=== PATIENT | female | born 1945 | race Caucasian/White ===

== ENCOUNTER 2020-08-06 17:28 | Emergency (ER) | payer MEDICARE, OTHER, SELFPAY ==
[2020-08-06 17:46] VITALS: BP 165/95; PULSE 69; RESP 18; TEMP 36.9; O2SAT 99
[2020-08-06 17:59] VITALS: BP 165/95; PULSE 69; RESP 18; TEMP 36.9; O2SAT 99
--- NOTE | 2020-08-06 18:27 | ED.BACK ---
HPI - Back Pain/Injury General Chief Complaint: Back Pain/Injury Stated Complaint: Back Pain History of Present Illness HPI Narrative: This is a 75-year-old white female that presented today with lower back pain. Patient notes that she has a history of sciatic nerve pain and noted that yesterday she started having pain in her lower back bilateral. She did take anti-inflammatories with no relief. Patient notes that her pain increases when she sits, flexion and rotation she notes that she has pain while standing for long periods of time . Patient has full range of motion is her lower extremities, she is able to raise both legs and strength is equal bilateral. Patient pain does not radiate to her lower extremity she has not experienced any numbness or tingling as she describes it as a burning pain. The patient denies SOB, CP, palpitation, extremity numbness, lightheadedness, dizziness, constipation, diarrhea, chills, or fever. Related Data Home Medications Medication Instructions Recorded Confirmed lisinopril 20 mg PO DAILY 08/06/20 08/06/20 metformin 500 mg PO BID 08/06/20 08/06/20 Allergies Allergy/AdvReac Type Severity Reaction Status Date / Time Penicillins Allergy Swelling Verified 08/06/20 17:59 of Lip/Tongue/Throat Sulfa (Sulfonamide Allergy Rash Verified 08/06/20 17:59 Antibiotics) Review of Systems Review of Systems: All systems reviewed & are unremarkable except as noted in HPI and below (10 system review) Exam Narrative: Exam Narrative: GENERAL: This is a well-nourished, well-developed patient, in no apparent distress. HEAD: normocephalic, atraumatic. EYES: PERRL. Sclera clear/white. Vision is grossly intact. EARS: External ears normal, auditory canals clear and without drainage, TMs normal without perforation. Hearing grossly intact. NOSE: External nose normal with no obvious nasal discharge, nares without redness, no rhinorrhea. THROAT: Mucous membranes moist, posterior pharynx clear. NECK: Neck supple, non-tender without lymphadenopathy, masses or thyromegaly. CARDIOVASCULAR: Regular rate and rhythm without murmurs, gallops, or rubs. RESPIRATORY: Clear to auscultation. Breath sounds equal bilaterally. No wheezes, rales, or rhonchi. GASTROINTESTINAL: Abdomen soft, non-tender, nondistended. Bowel sounds are active. No hepato-splenomegaly, or palpable masses. No guarding. SKIN: warm, intact with no suspicious lesions or rash, good texture and turgor. NEURO: awake, alert, and oriented to person, place and time. There were no obvious focal neurologic abnormalities. Steady gait EXTREMITIES: Normal range of motion. No edema. No calf tenderness. Negative Homans sign bilaterally. BACK: Tenderness to lower back bilateral. Course Course Emergency Course: Patient discharged with prednisone and Flexeril [place] instructed to follow-up with her primary care physician Vital Signs Vital signs: Vital Signs Temperature 98.5 F 08/06/20 17:46 Pulse Rate 69 08/06/20 17:46 Respiratory Rate 18 08/06/20 17:46 Blood Pressure 165/95 H 08/06/20 17:46 Pulse Oximetry 99 08/06/20 17:46 Temperature 98.5 F 08/06/20 17:59 Pulse Rate 69 08/06/20 17:59 Respiratory Rate 18 08/06/20 17:59 Blood Pressure 165/95 H 08/06/20 17:59 Pulse Oximetry 99 08/06/20 17:59 Discharge Plan Discharge Clinical Impression: Sciatica Qualifiers: Laterality: bilateral Qualified Code(s): M54.31 - Sciatica, right side Patient Disposition: Home, Self-Care Condition: Stable Instructions: Antibiotic Form Additional Instructions: We cannot avoid the normal wear and tear on our spines that goes along with aging. But there are things you can do to lessen the impact of low back problems. Having a healthy lifestyle is a good start. Exercise:Combine aerobic exercise, like walking or swimming, with specific exercises to keep the muscles in your back and abdomen strong and flexible. Proper Lifting:Be sure
== END 2020-08-06 18:14 | disposition home or self-care (01) ==
PROVIDERS: Emergency Provider Nurse Practitioner; PCP Family Medicine Sports Medicine
DX: M54.31 Sciatica, right side (principal)
CPT/HCPCS: 99203; G0463

== ENCOUNTER 2020-09-29 01:18 | Day surgery (SDC) | payer MEDICARE, OTHER, SELFPAY ==
[2020-09-11 16:18] VITALS: BMI 34.2
--- NOTE | 2020-09-11 16:38 | PC.NURSE ---
Pt. states she tested positive for Covid on 08/30/2020. Pt. symptoms included diarrhea, back pain, runny nose, loss of taste/smell, and fatigue. Instructed pt to take picture of Covid test result and email to our Instructor [employer] Tuyet Wyman. Also instructed pt to bring copy of positive test result on day of procedure. Shruthi Esparza RN.
--- NOTE | 2020-09-29 07:48 | WPDANESEPPF ---
Anes - Initial Pre Proc Eval Procedure: Operation Date: 09/29/20 09:15 Proposed Procedures p Screening Colonoscopy - Pierce Epps MD Date/Time: 09/29/20 07:48 Surgeon: Pierce Epps MD Pre Op Diagnosis: Neoplasm Screening,fam hx colon CA, pers hx polyps Patient Data Age: 75 Gender: F Height: 1.57 m Weight: 85 kg Allergies Allergy/AdvReac Type Severity Reaction Status Date / Time bee venom protein (honey bee) Allergy Severe Swelling Verified 09/29/20 07:53 [bees] Penicillins Allergy Swelling Verified 09/29/20 07:53 of Lip/Tongue/Throat Sulfa (Sulfonamide Allergy Rash Verified 09/29/20 07:53 Antibiotics) Home Medications Medication Instructions Recorded Confirmed Type lisinopril 20 mg PO DAILY 08/06/20 09/11/20 History metformin 500 mg PO BID 08/06/20 09/11/20 History sodium,potassium,mag sulfates See Rx Instructions .ROUTE 09/10/20 Rx [Suprep Bowel Prep Kit] .COMPLEX #1 ml amlodipine 5 mg PO DAILY 09/11/20 09/11/20 History aspirin 81 mg PO DAILY 09/11/20 09/11/20 History cetirizine [Zyrtec] 10 mg PO DAILY 09/11/20 09/11/20 History cholecalciferol (vitamin D3) 250 mcg PO DAILY 09/11/20 09/11/20 History diphenhydramine HCl [Benadryl] 25 mg PO HS 09/11/20 09/11/20 History spironolactone 50 mg PO DAILY 09/11/20 09/11/20 History Patient hx anesthesia problems: none Family hx anesthesia problems: none [facility] Past Medical History Medical History (Updated 09/29/20 @ 08:02 by Connor Navarro MD) Anxiety CAD (coronary artery disease) Depression Diabetes HTN (hypertension) Hx of myocardial infarction Obesity Osteoarthritis Social History Social History Smoking status: Never smoker Living arrangements: alone Spiritual care concerns: No Anes - Eval Final PreProcedure Day of Procedure 09/29/20 07:48 Patient weight: obese Heart: regular rate and rhythm Lungs: clear to auscultation and normal air movement Airway: Mallampati scale class II Neurological: alert and oriented Last oral intake: >/= 8 hours ASA classification: III Emergent: no Anesthetic plan: proceed Anesthesia type and monitoring: general GIVS Informed Consent: The patient's anesthetic plan and its attendant risks and benefits were discussed with the patient/family/POA. Questions were solicited and answers provided to the satisfaction of the patient/family/POA.
[2020-09-29 07:55] VITALS: BP 164/62; PULSE 68; RESP 18; TEMP 36.1; O2SAT 100
[2020-09-29] MEDS: LACTATED RINGERS 1,000 ML 150 ML IV CONT (08:15)
[2020-09-29 08:18] LABS: Glucose Point of Care 177 (65-105)
--- NOTE | 2020-09-29 08:36 | PM.HPGS ---
History of Present Illness History of Present Illness Consent: Risks, benefits, and alternatives have been discussed and questions answered. Patient agrees to proceed with procedure. Chief complaint: Neoplasm Screening,fam hx colon CA, pers hx polyps Narrative: Morenita Miller is a 75 year old female with colon polyps about 3 years ago, also father with colon cancer Review of Systems Constitutional: Constitutional: Denies headache(s) and Denies weakness Eyes: Eyes: Denies blurry vision ENT: Reports Normal hearing present, Denies headache(s) and Denies neck pain Cardiovascular: Cardiovascular: Denies chest pain and Denies dyspnea Respiratory: Respiratory: Denies dyspnea Gastrointestinal: Gastrointestinal: Reports no additional gastrointestinal complaints Genitourinary: Genitourinary: Denies dysuria Musculoskeletal: Musculoskeletal: Denies neck pain Integumentary/Breasts: Skin/Breast: Denies dry skin Neurologic: Reports Normal hearing present, Denies headache(s) and Denies weakness Psychiatric: Psychiatric: Denies anxiety Endocrine: Endocrine: Denies change in body appearance Hematologic/Lymphatic: Hematologic/Lymphatic: Denies easy bleeding Allergic/Immunologic: Allergic/Immunologic: Denies urticaria PMF Past Medical History Medical History (Updated 09/29/20 @ 08:36 by Pierce Epps MD) Adenomatous colon polyp Anxiety CAD (coronary artery disease) Depression Diabetes Family history of colon cancer in father HTN (hypertension) Hx of myocardial infarction Obesity Osteoarthritis Social History Social History Smoking status: Never smoker Living arrangements: alone Spiritual care concerns: No Meds Home Medications and Allergies Home Medications Medication Instructions Recorded Confirmed Type lisinopril 20 mg PO DAILY 08/06/20 09/29/20 History metformin 500 mg PO BID 08/06/20 09/29/20 History amlodipine 5 mg PO DAILY 09/11/20 09/29/20 History aspirin 81 mg PO DAILY 09/11/20 09/29/20 History cetirizine [Zyrtec] 10 mg PO DAILY 09/11/20 09/29/20 History cholecalciferol (vitamin D3) 250 mcg PO DAILY 09/11/20 09/29/20 History diphenhydramine HCl [Benadryl] 25 mg PO HS 09/11/20 09/29/20 History spironolactone 50 mg PO DAILY 09/11/20 09/29/20 History Allergies Allergy/AdvReac Type Severity Reaction Status Date / Time bee venom protein (honey bee) Allergy Severe Swelling Verified 09/29/20 07:53 [bees] Penicillins Allergy Swelling Verified 09/29/20 07:53 of Lip/Tongue/Throat Sulfa (Sulfonamide Allergy Rash Verified 09/29/20 07:53 Antibiotics) Vital Signs Vital Signs - 24 hr 09/29/20 07:55 Temperature 96.9 F L Pulse Rate 68 Respiratory Rate 18 Blood Pressure 164/62 H Pulse Oximetry 100 Exam Const: General: comfortable and no acute distress HENMT: General nose exam: Normal nares present Eyes: General: appearance normal, both eyes and all related structures Neck: Neck: no JVD Resp: Auscultation: clear to auscultation bilaterally Cardio: Rate: regular rate Rhythm: regular rhythm GI: Inspection: non-distended GI Palp: Yes Soft to palpation Skin: General skin exam: normal color Neuro: General: gait normal Speech: normal speech Extrem: General: normal to inspection Psych: Mental Status: mental status grossly normal Assessment and Plan Assessment and plan (1) Adenomatous colon polyp: Code(s): D12.6 - Benign neoplasm of colon, unspecified Status: Acute Assessment and Plan: will proceed with colonoscopy (2) Family history of colon cancer in father: Code(s): Z80.0 - Family history of malignant neoplasm of digestive organs Status: Acute
[2020-09-29 08:59] VITALS: BP 135/65; PULSE 60; RESP 18; O2SAT 100
[2020-09-29 09:09] VITALS: BP 128/64; PULSE 57; RESP 18; O2SAT 98
[2020-09-29 09:19] VITALS: BP 151/84; PULSE 64; RESP 20; O2SAT 100
== END 2020-09-29 09:41 | disposition home or self-care (01) ==
PROVIDERS: PCP Family Medicine Sports Medicine; Visit Provider Internal Medicine Gastroenterology
PROC: 0DJD8ZZ Inspection of Lower Intestinal Tract, Via Natural or Artificial Opening Endoscopic (ICD-10-PCS; CPT 45378; principal; 2020-09-29 09:15)
DX: Z12.11 Encounter for screening for malignant neoplasm of colon (principal); K57.30 Diverticulosis of large intestine without perforation or abscess without bleeding; K64.8 Other hemorrhoids; K64.4 Residual hemorrhoidal skin tags; Z86.010 Personal history of colon polyps; Z80.0 Family history of malignant neoplasm of digestive organs; I10 Essential (primary) hypertension; E11.9 Type 2 diabetes mellitus without complications; I25.10 Atherosclerotic heart disease of native coronary artery without angina pectoris; I25.2 Old myocardial infarction; F41.8 Other specified anxiety disorders; E66.9 Obesity, unspecified; Z68.35 Body mass index [BMI] 35.0-35.9, adult; Z79.84 Long term (current) use of oral hypoglycemic drugs; Z79.82 Long term (current) use of aspirin
CPT/HCPCS: G0105; 82948; J2704; J7120

== ENCOUNTER 2020-11-06 02:21 | Emergency (ER) | payer MEDICARE, OTHER, SELFPAY ==
--- NOTE | ~2020-11-06 | XR_ITS ---
EXAMINATION: XR chest 2V DATE: 11/06/2020 02:42 INDICATION: Midsternal chest pain TECHNIQUE: PA and lateral views of the chest are obtained. COMPARISON: None available FINDINGS: The lungs are free of acute opacities. There is no pleural effusion or pneumothorax. The ca rdiomediastinal silhouette is normal. There is moderate thoracic spondylosis. IMPRESSION: 1. No acute cardiopulmonary abnormality. Reviewed, dictated and finalized at location [facility]. [employer] [employer]
[2020-11-06 02:22] VITALS: BP 155/73; PULSE 81; RESP 16; TEMP 36.8; O2SAT 96
--- NOTE | 2020-11-06 02:27 | ECG_ITS ---
Measurements Intervals [place] Rate: 74 P: 13 SC: 202 QRS: 6 QRSD: 111 T: 66 QT: 380 QTc: 424 Interpretive Statements SINUS RHYTHM BORDERLINE AV CONDUCTION DELAY INTRAVENTRICULAR CONDUCTION DELAY BORDERLINE ECG Electronically Signed On 11-06-2020 7:07:12 [employer] by Micheal Garcia D.O.
[2020-11-06 02:44] LABS: Basophils Absolute Auto 0.1 K/mm3 (0.0-0.1); Basophils Percent Auto 0.9 % (0.2-1.2); Eosinophils Absolute Auto 0.2 K/mm3 (0-0.3); Hematocrit 38.2 % (37.0-47.0); Hemoglobin 12.5 g/dL (12.0-15.0); Immature Granulocyte Absolute 0.03 K/mm3 (0.00-0.031); Immature Granulocyte Percent A 0.4 % (0-0.5); Lymphocytes Absolute Auto 1.49 K/mm3 (0.9-3.2); Lymphocytes Percent Auto 21.4 % (18.3-44.2); Mean Corpuscular HGB Conc 32.7 g/dl (32-36); Mean Corpuscular Volume 91.8 fl (80-100); Mean Platelet Volume 10.5 fl (7.4-10.4); Monocytes Absolute Auto 0.5 K/mm3 (0.1-0.6); Monocytes Percent Auto 7.3 % (2.6-8.5); Neutrophils Absolute Auto 4.7 K/mm3 (1.3-6.7); Platelet Count Result 223 k/mm3 (150-375); Red Blood Count 4.16 M/mm3 (4.2-5.4); Red Cell Distribution Width 12.5 % (11.5-14.5)
--- NOTE | 2020-11-06 02:57 | ED.CHESTPAIN ---
HPI - Chest Pain General Chief Complaint: Chest Pain Stated Complaint: CP Time Seen by Provider: 11/06/20 02:27 History of Present Illness HPI narrative: 75 yo female w/ h/o htn, DM, NSTEMI? presents to the ED for chest pain. She was sitting at her computer 1-2 hours ago when she developed moderate substernal chest pressure. This radiated to the left side of her neck. She had aspirin and nitro x2 prior to arrival. Pain is now 2/10. She had chest pain in the past which was a bit different. At that time she had a stressed test and was told that she had already had an MO. No SOB, nausea. Related Data Home Medications Medication Instructions Recorded Confirmed lisinopril 20 mg PO DAILY 08/06/20 09/29/20 metformin 500 mg PO BID 08/06/20 09/29/20 amlodipine 5 mg PO DAILY 09/11/20 09/29/20 aspirin 81 mg PO DAILY 09/11/20 09/29/20 cetirizine [Zyrtec] 10 mg PO DAILY 09/11/20 09/29/20 cholecalciferol (vitamin D3) 250 mcg PO DAILY 09/11/20 09/29/20 diphenhydramine HCl [Benadryl] 25 mg PO HS 09/11/20 09/29/20 spironolactone 50 mg PO DAILY 09/11/20 09/29/20 Allergies Allergy/AdvReac Type Severity Reaction Status Date / Time bee venom protein (honey bee) Allergy Severe Swelling Verified 09/29/20 07:53 [bees] Penicillins Allergy Swelling Verified 09/29/20 07:53 of Lip/Tongue/Throat Sulfa (Sulfonamide Allergy Rash Verified 09/29/20 07:53 Antibiotics) Review of Systems Review of Systems: All systems reviewed & are unremarkable except as noted in HPI and below Constitutional: Constitutional: Denies chills, Denies fever(s) and Denies weakness ENT: Denies sore throat Cardiovascular: Cardiovascular: Reports chest pain Respiratory: Respiratory: Denies dyspnea Gastrointestinal: Gastrointestinal: Denies abdominal pain, Denies nausea and Denies vomiting Genitourinary: Genitourinary: Reports no additional female genitourinary complaints Neurologic: Denies weakness [facility] Past Medical History Medical History Adenomatous colon polyp Anxiety CAD (coronary artery disease) Depression Diabetes Family history of colon cancer in father HTN (hypertension) Hx of myocardial infarction Obesity Osteoarthritis Social History Social History Smoking status: Never smoker Spiritual care concerns: No Exam Const: General: healthy appearing, no acute distress and alert Nutritional Appearance: obese Orientation/consciousness: patient oriented x3 HENMT: Head: normal to inspection Chest: Chest palpation & inspection: no tenderness Resp: Effort & Inspection: normal respiratory effort Auscultation: clear to auscultation bilaterally, no rales, no rhonchi and no wheezes Cardio: Jugular venous distension: no JVD Rate: regular rate Rhythm: regular rhythm Heart sounds: no murmurs GI: Inspection: non-distended GI Palp: Yes Soft to palpation and No Tenderness to palpation present (GI) Skin: General skin exam: normal color Neuro: General: patient oriented x3, moves all extremities, no focal motor deficits and CN's II-XI intact bilaterally Speech: normal speech Extrem: General: normal to inspection and no edema Psych: Appearance: well kempt Affect: normal affect Course Vital Signs Vital signs: Vital Signs Temperature 36.8 C 11/06/20 02:22 Pulse Rate 81 11/06/20 02:22 Respiratory Rate 16 11/06/20 02:22 Blood Pressure 155/73 H 11/06/20 02:22 Pulse Oximetry 96 11/06/20 02:22 Temperature 36.4 C L 11/06/20 06:10 Pulse Rate 81 11/06/20 06:10 Respiratory Rate 16 11/06/20 06:10 Blood Pressure 148/82 H 11/06/20 06:10 Pulse Oximetry 98 11/06/20 06:10 MDM - Chest Pain MDM Narrative Medical decision making narrative: EKG essentially normal. Troponin negative x2. Differential Diagnosis Differential diagnosis: Likely unstable angina pectoris, chest pain (NSTEMI) and
[2020-11-06 03:02] LABS: Partial Thromboplastin Time 27.8 SECONDS (22.3-36.8)
[2020-11-06 03:13] LABS: Anion Gap 8 mmol/L (8-16); Blood Urea Nitrogen 16 mg/dL (7-17); Calcium 9.4 mg/dL (8.4-10.2); Carbon Dioxide 30 mmol/L (22-30); Chloride 103 mmol/L (98-107); Estimated CRCL calculation 44 ml/min; Estimated Glomerular Filt Rate 49; Glucose 227 mg/dL (65-105); Potassium 3.6 mmol/L (3.4-5.0); Sodium 141 mmol/L (137-145)
[2020-11-06 03:24] LABS: Troponin I < 0.012 ng/mL (0.000-0.034)
[2020-11-06 05:17] VITALS: BP 141/86; PULSE 72; RESP 16; O2SAT 97
[2020-11-06 05:43] LABS: Troponin I < 0.012 ng/mL (0.000-0.034)
[2020-11-06 06:10] VITALS: BP 148/82; PULSE 81; RESP 16; TEMP 36.4; O2SAT 98
== END 2020-11-06 06:10 | disposition home or self-care (01) ==
PROVIDERS: Emergency Provider Emergency Medicine; PCP Family Medicine Sports Medicine
DX: R07.2 Precordial pain (principal); I10 Essential (primary) hypertension; E11.9 Type 2 diabetes mellitus without complications; Z79.84 Long term (current) use of oral hypoglycemic drugs; I25.10 Atherosclerotic heart disease of native coronary artery without angina pectoris; Z86.010 Personal history of colon polyps; M19.90 Unspecified osteoarthritis, unspecified site; E66.9 Obesity, unspecified; Z68.38 Body mass index [BMI] 38.0-38.9, adult; I45.9 Conduction disorder, unspecified
CPT/HCPCS: 36415; 71046; 80048; 84484; 85025; 85610; 85730; 93005; 99284